=== PATIENT | female | born 1970 | race Caucasian/White ===

== ENCOUNTER → 2019-10-12 | Day surgery (SDC) | payer MEDICAID ==
[2019-10-06 13:20] LABS: ALKALINE PHOSPHATASE 103 U/L (46-116); ALT/SGPT 21 U/L (14-59); AST/SGOT 15 U/L (15-37); BILIRUBIN TOTAL 0.3 mg/dL (0.20-1.00); CALCIUM 8.9 mg/dL (8.5-10.1); CARBON DIOXIDE 33.6 mmol/L (21-32); CHLORIDE SERUM 103 mmol/L (98-107); CREATININE SERUM 0.7 mg/dL (0.6-1.0); GFR1 > 60 mL/min; GLUCOSE SERUM 99 mg/dL (74-106); POTASSIUM SERUM 3.8 mmol/L (3.5-5.1); SODIUM SERUM 141 mmol/L (136-145); TOTAL PROTEIN, SERUM 7.8 g/dL (6.4-8.2)
[2019-10-06 13:39] LABS: BASOPHIL % 0.5 % (0-2)
[2019-10-06 13:53] LABS: PLATELET COUNT 318 x10^3mcL (130-400); RED CELL DISTRIBUTION WIDTH 14.4 % (11.5-14.5)
[~2019-10-12] VITALS: Ht 152.4 cm; Wt 54.4 kg
[2019-10-12 07:40] VITALS: BP 140/82
[2019-10-12 17:17] VITALS: BP 109/68
== END | disposition home or self-care (01) ==
LOC: DS 07:04 → OR 10:00 → DS 12:30
PROVIDERS: ATTEND Surgery
DX: D05.12 Intraductal carcinoma in situ of left breast (principal); Z11.59 Encounter for screening for other viral diseases
CPT/HCPCS: 88344; J0690; J1170; J2001; J2405; J2704; J3010; J3490; J7120; Q0092; U0003-CS

== ENCOUNTER 2019-11-07 09:32 | Day surgery (SDC) | payer MEDICAID ==
[2019-11-02 14:17] LABS: BASOPHIL % 0.2 % (0-2); PLATELET COUNT 318 x10^3mcL (130-400); RED CELL DISTRIBUTION WIDTH 14.1 % (11.5-14.5)
[2019-11-02 14:34] LABS: ALBUMIN 3.4 g/dL (3.4-5.0); ALKALINE PHOSPHATASE 77 U/L (46-116); ALT/SGPT 19 U/L (14-59); AST/SGOT 10 U/L (15-37); BILIRUBIN TOTAL 0.26 mg/dL (0.20-1.00); CALCIUM 8.3 mg/dL (8.5-10.1); CARBON DIOXIDE 27.8 mmol/L (21-32); CHLORIDE SERUM 106 mmol/L (98-107); CREATININE SERUM 0.7 mg/dL (0.6-1.0); GFR1 > 60 mL/min; GLUCOSE SERUM 83 mg/dL (74-106); POTASSIUM SERUM 3.8 mmol/L (3.5-5.1); SODIUM SERUM 141 mmol/L (136-145); TOTAL PROTEIN, SERUM 6.8 g/dL (6.4-8.2)
[~2019-11-07] VITALS: Ht 152.4 cm; Wt 54.4 kg
[2019-11-07 10:00] VITALS: BP 138/89
[2019-11-07 17:17] VITALS: BP 113/68
== END 2019-11-07 16:00 | disposition home or self-care (01) ==
LOC: DS 09:32 → OR 12:00 → DS 12:00
PROVIDERS: ATTEND Surgery
DX: D05.12 Intraductal carcinoma in situ of left breast (principal); Z11.59 Encounter for screening for other viral diseases
CPT/HCPCS: 88344; J0690; J2175; J2250; J3010; J3490; U0003-CS